=== PATIENT | female | born 1990 | race Caucasian/White ===

== ENCOUNTER 2017-08-04 13:01 | Emergency (ER) ==
[2017-08-04 13:17] VITALS: BP 117/76; TEMP 98.7; BMI 25.0
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
[2017-08-04] MEDS: DECADRON 4 MG/ML SDV IM STA (13:52)
== END 2017-08-04 14:21 | disposition home or self-care (01) ==
LOC: ED 13:01
DX: L23.7 Allergic contact dermatitis due to plants, except food (principal); F17.210 Nicotine dependence, cigarettes, uncomplicated
CPT/HCPCS: 96372; 99282

== ENCOUNTER 2017-08-20 13:02 | Emergency (ER) ==
[2017-08-20 13:11] VITALS: BP 115/78; TEMP 97.4; BMI 24.1
--- NOTE | 2017-08-20 14:22 | CT ---
EXAM: CT chest without contrast HISTORY: Left lateral chest wall injury and rib pain COMPARISON: Chest x-ray 04/10/2010 TECHNIQUE: Serial axial images of the chest were obtained from the lung apices to the upper abdomen without contrast. These were viewed in multiple planes. FINDINGS: The thyroid is normal. The visualized vessels are unremarkable without aneurysm or stenos is. The heart is normal in size without pericardial effusion. There are no pathologically enlarged mediastinal or hilar lymph nodes. There is no acute cardiopulmonary process or consolidation. The airways are patent. There is no abn ormal ground-glass. Soft tissues in the upper abdomen are unremarkable. There is no visualized rib fracture or acute oss eous abnormality. IMPRESSION: 1. No acute osseous abnormality or rib fracture. 2. No additional abnormality is identified.
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
== END 2017-08-20 14:34 | disposition home or self-care (01) ==
LOC: ED 13:02
DX: R07.89 Other chest pain (principal); F17.210 Nicotine dependence, cigarettes, uncomplicated
CPT/HCPCS: 36415; 84703; 99282

== ENCOUNTER 2017-12-19 13:29 | Outpatient (CLI) ==
--- NOTE | 2017-12-19 14:08 | US ---
EXAM: Thyroid ultrasound HISTORY: Goiter COMPARISON: None TECHNIQUE: Thyroid ultrasound was performed FINDINGS: Right thyroid measures 2.0 x 1.5 x 4.7 cm. Left thyroid measures 1.8 x 1.4 x 4.8 cm. Thy roid isthmus measures 0.2 cm. Thyroid mildly heterogeneous in echogenicity. Thyroid normal in vascu larity. There is a hypoechoic nodule in the left mid thyroid measuring 0.4 0.2 x 0.3 cm. IMPRESSION: 1. Mildly heterogeneous thyroid, nonspecific. 2. Sub centimeter left thyroid nodule. Recommend sonographic follow-up 12 months for reevaluation.
== END 2017-12-19 13:30 | disposition home or self-care (01) ==
LOC: RAD 13:29
PROVIDERS: ATTEND Physician Assistant
DX: E04.9 Nontoxic goiter, unspecified (principal)